=== PATIENT | female | born 1945 | race Caucasian/White ===

== ENCOUNTER → 2020-08-30 07:44 | Outpatient (REF) | payer MEDICARE, OTHER, SELFPAY ==
--- NOTE | 2020-08-30 | NM_ITS ---
EXERCISE MYOCARDIAL PERFUSION STUDY INDICATION: Tachycardia, abnormal EKG, abnormal echocardiogram, assess for coronary disease and ischemia TECHNIQUE: The patient was brought in for an exercise perfusion study on 08/30/2020. Patient performed exercise as per Kahlil protocol and was injected 25 mCi of sestamibi once target heart rate was achieved. Images were obtained using the SPECT gamma camera interlaced with the gating device. Images were obtained in supine position. Resting perfusion study was performed on 08/31/2020. Patient was administered 25 mCi of sestamibi intravenously at rest. Images were then obtained in supine position. Total DLP 71mGy-cm. Images were processed with the software and compared side to side in short axis, horizontal long axis and vertical long axis views. FINDINGS: Raw images were reviewed. The stress perfusion study showed diminished tracer uptake along the basal inferoseptal wall. With CT attenuation correction this is still seen. Otherwise, no significant perfusion abnormality.. The gated study shows normal LV systolic function with calculated LVEF of > 70%. LV cavity is normal in size. The gated study shows diminished thickening and contractility in the basal inferoseptal wall. Resting study shows diminished tracer uptake along the basal inferoseptal wall. Gating at rest reveals basal inferoseptal hypokinesis with ejection fraction at > 70%. The findings are consistent with fixed basal inferoseptal defect. No reversible defects. NM/NM maine perf SPECT rest & str IMPRESSION: 1. Myocardial perfusion imaging study shows fixed basal inferoseptal perfusion defect that may indicate a prior nontransmural infarct. No evidence of any ischemia. 2. Gated LVEF is > 70%. 3. Transient ischemic dilatation not present. EKG component of the test reported separately.
--- NOTE | 2020-08-30 07:41 | CA_ITS ---
Acquisition Time: 2020-08-30 08:39:59 Total Exercise Time: 00:04:52 Test Indications: Abnormal ECG Medications: CARVEDILOL Protocol: BONIFACIO Max HR: 146 BPM 100% of Pred: 146 BPM Max BP: 192/088 mmHG Max Work Load: 4.6 METS Exercise stress nuclear test using Bonifacio protocol. Total of 4 min 52 sec. Second stage held. Pt was very tired, some SOB, denies any CP. EKG with occ. PAC's . No ischemic changes noted on EKG however hshe achieved 4.6 METs of her work level. Nuclear images to follow. Normotensive response to exercise. Test reviewed with Dr. Rosario. Referred By: Uziel Lugo Overread By: Andre Holliday
--- NOTE | 2020-08-30 07:41 | ECG_ITS ---
Hook-up date: 2020-08-30 09:28:00 Duration: 23:09:00 Test Indications: SINUS TACHYCARDIA, ABN EKG Medications: 188135 QRS complexes 3 Ventricular ectopics which represent <1 % of total QRS comp. 1326 Supraventricular ectopics which represent 1 % of total QRS comp. * Paced QRS complexs which represent % of total QRS comp. VENTRICULAR ECTOPY 3 Isolated 0 Bigeminal Cycles 0 Couplets 0 Runs 0 Beats in Runs * Beats LONGEST at * BPM at :: -- * Beats FASTEST at * BPM at :: -- SUPRAVENTRICULAR ECTOPY 667 Isolated 162 Couplets 90 Runs 335 Beats in Runs 9 Beats LONGEST at 107 BPM at 05:14:54 2020-08-31 3 Beats FASTEST at 137 BPM at 04:54:48 2020-08-31 HEART RATES 70 MIN at 04:09:40 2020-08-31 93 AVG 141 MAX at 09:31:11 2020-08-30 LONGEST RR 1.1920 secs at 04:12:24 2020-08-31 S-T LEVELS Channel 1 - 128 mm at 09:28:00 2020-08-30 - 128 mm at 09:28:00 2020-08-30 Channel 2 - 128 mm at 09:28:00 2020-08-30 - 128 mm at 09:28:00 2020-08-30 Channel 3 - 128 mm at 02:84:71 -- - 128 mm at 02:84:71 Basic rhythm Normal sinus rhythm No long pause or profound bradycardia Frequent Sinus tachycardia Frequent Premature atrial complexes No diary submitted Referred By: Uziel Lugo Overread By: JASON PLAZA MD
--- NOTE | 2020-08-30 07:41 | CA_ITS ---
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 - E/E prime ratio is between 8 and 15 consistent with indeterminate filling pressures. - Normal right ventricular cavity size and systolic function. - The left atrium is mildly dilated. - There is moderate mitral annular calcification. There is moderate mitral valve regurgitation. The mitral regurgitation jet is directed posteriorly. - Small posterior pericardial effusion noticed posteriorly on PSx views. No tamponade physiology. Findings Left Ventricle Normal left ventricular size and systolic function. There is mildly increased left ventricular wall thickness. The visually estimated ejection fraction is between 55-60%. Regional wall motion abnormalities can not be excluded due to suboptimal endocardial definition. Diastolic function is normal for age. Spectral Doppler is indicative of an impaired relaxation filling pattern. E/E prime ratio is between 8 and 15 consistent with indeterminate filling pressures. Right Ventricle Normal right ventricular cavity size and systolic function. Atria The left atrium is mildly dilated. There is no evidence of interatrial shunt by color Doppler. Aortic Valve Normal aortic valve structure and function. There is no aortic valve stenosis. There is no aortic valve regurgitation. Mitral Valve There is moderate mitral annular calcification. There is moderate mitral valve regurgitation. The mitral regurgitation jet is directed posteriorly. There is no mitral valve stenosis. Pulmonic Valve Normal pulmonic valve structure and function. There is trace pulmonic valve regurgitation. Tricuspid Valve Normal tricuspid valve structure. There is mild to moderate tricuspid valve regurgitation. Normal right atrial pressure. There is no evidence of pulmonary hypertension. Great Vessels All visible segments of the aorta are normal in size. The visualized portions of the pulmonary artery and branches are normal. Venous The inferior vena cava is normal in size and collapses greater than 50% with inspiration. Pericardium/Pleural Small posterior pericardial effusion noticed posteriorly on PSx views. No tamponade physiology. Prior Study Comparison Changes noted compared to prior study dated: 12/01/2018. Moderate MAC and moderate MR. Small posterior pericardial effusion without tamponade physiology. Measurements 2D Linear Measurements IVSd: 1.03 0.6-0.9/0.6-1.0 cm LVIDd: 4.31 3.9-5.3/4.2-5.9 cm LVIDs: 2.78 2.0-3.6 cm LVPWd: 0.98 0.7-1.1 cm Ao Root: 2.76 2.1-3.5 cm LV Mass: 180.04 67-162/88-224 g LVOT Diam: 2.00 3.0+(-)1.3 cm Mitral Valve MV VTI: 0.29 MV Pk Lior: 1.30 MV Mn Lior: 0.87 MV Pk Grad: 6.79 MV Mn Grad: 3.49 MV Pk E: 0.93 MV PK A: 1.19 MV Decel Time: 161.67 E/A: 0.78 E'Lateral: 0.08 E'Medial: 0.07 Decel [place]: 5.77 Aortic Valve AoV Pk Lior: 1.38 AoV Mn Lior: 1.06 AoV VTI: 0.35 AoV Pk Grad: 7.56 Aov Mn Grad: 4.93 LVOT LVOT Pk Lior: 0.84 LVOT Mn Lior: 0.52 LVOT VTI: 0.21 LVOT Pk Grad: 2.82 LVOT Mn Grad: 1.32 LVOT Diam: 2.00 LVOT Area: 3.13 Diastolic Function MV Pk E: 0.93 MV Pk A: 1.19 E/A: 0.78 E'Medial: 0.07 E' Laterial: 0.08 Tricuspid Valve TR Pk Lior: 2.27 TR Pk Grad: 20.68 RA Press: 3.00 Great Vessels Aorta Ao Root-2D: 2.76 2.0-3.7 cm Ao Asc: 2.88 2.1-3.4 cm Pulmonary Valve PV Pk Lior: 0.86 Peak PV Grad: 2.93 Updated in Other Vendor System with Status of Final Kendrick Rosario MD electronically signed on 08/31/2020 10:45:36 AM with status of Final
== END ==
LOC: HO.CARD 07:44
PROVIDERS: PCP Family Medicine; Visit Provider Internal Medicine
DX: R00.0 Tachycardia, unspecified (principal); I49.8 Other specified cardiac arrhythmias; R94.31 Abnormal electrocardiogram [ECG] [EKG]
CPT/HCPCS: 78452; 93017; 93225; 93226; 93306; A9500

== ENCOUNTER → 2020-09-13 08:10 | Outpatient (BNVA) | payer MEDICARE, OTHER, SELFPAY | PROVIDERS: PCP Family Medicine; Referring Provider Family Medicine; Visit Provider Internal Medicine | DX: I25.10 Atherosclerotic heart disease of native coronary artery without angina pectoris (principal); R00.0 Tachycardia, unspecified; Z79.899 Other long term (current) drug therapy | CPT/HCPCS: 99212 ==

== ENCOUNTER 2020-09-14 06:56 | Outpatient (REF) | payer MEDICARE, OTHER, SELFPAY ==
[2020-09-14 07:49] LABS: Alanine Aminotransferase 21 U/L (0-31); Albumin Level 4.3 g/dL (3.5-5.0); Alkaline Phosphatase 52 U/L (39-117); Aspartate Amino Transferase 18 U/L (5-31); Bilirubin Direct 0.4 mg/dL (0.0-0.5); Cholesterol 202 mg/dL; HDL Cholesterol 49 mg/dL; LDL Cholesterol Calculated 123 mg/dl; Total Protein 6.6 g/dL (6.5-8.0); Triglycerides 154 mg/dL
== END 2020-09-14 06:57 | disposition home or self-care (01) ==
LOC: HO.LAB 06:56
PROVIDERS: PCP Family Medicine; Visit Provider Internal Medicine
DX: I25.10 Atherosclerotic heart disease of native coronary artery without angina pectoris (principal)
CPT/HCPCS: 80061; 80076

== ENCOUNTER 2020-12-04 07:30 | Day surgery (SDC) | payer MEDICARE, OTHER, SELFPAY ==
[2020-11-28 12:12] VITALS: BMI 25.8
--- NOTE | 2020-12-01 10:08 | HO.ANESPROP2 ---
Documented by User: Arlet New 12/01/20 10:13 HPI - Anesthesia Eval Consult details Narrative: 75yo F for Colonoscopy +ETOH, LIVP nml PMFSH Past Medical History Medical History Anemia Atherosclerotic cardiovascular disease Hx of breast cancer Hypertension Sinus tachycardia Family History Family History Father No problems noted. Mother Stroke Surgical History Surgical History History of appendectomy History of bilateral mastectomy History of section History of removal of both ovaries Hx of colonoscopy Social History Social History Are you a primary anesthesiologist and critical care to a significant other at home: No Do you presently have visiting nurse or other home services: No Smoking Status: Never smoker Second Hand Smoke Exposure: No Use of substances other than those prescribed or required for medical reasons: No Have you been hit, kicked, punched, or otherwise hurt by someone within the past year? If so, by whom?: No Advance Directives: No Advance Directives Information Provided: No Advance Directives on File: No Recently lost weight without trying: No Meds Allergies Allergy/AdvReac Type Severity Reaction Status Date / Time No Known Allergies Allergy Mild N/A Verified 11/28/20 11:37 Home Medications Medication Instructions Recorded Confirmed Type calcium carbonate-vitamin D3 600 1 tab PO DAILY 09/13/20 11/28/20 History mg(1,500 mg)-400 unit chewable tablet carvedilol 12.5 mg tablet 12.5 mg PO BID 09/13/20 12/04/20 History coenzyme Q10 100 mg capsule 100 mg PO DAILY 09/13/20 11/28/20 History ibuprofen [Advil] 200 mg PO Q6H PRN 11/28/20 11/28/20 History Exam Exam Date and Time: December 01, 2020 1008 Height,Weight and Vital Signs: Height 5 ft 6 in Weight 72.575 kg Narrative Narrative: Cardiac testing reviewed by cardiology. No further tx. EKG: sinus rhythm at 95/Min with mild MN prolongation and right ventricular conduction delay ECHO 08/30/20 Conclusions: - Normal left ventricular size and systolic function. - E/E prime ratio is between 8 and 15 consistent with indeterminate filling pressures. - Normal right ventricular cavity size and systolic function. - The left atrium is mildly dilated. - There is moderate mitral annular calcification. There is moderate mitral valve regurgitation. The mitral regurgitation jet is directed posteriorly. - Small posterior pericardial effusion noticed posteriorly on PSx views. No tamponade physiology. MIBI 08/30/21 NM maine perf SPECT rest & str IMPRESSION: 1. Myocardial perfusion imaging study shows fixed basal inferoseptal perfusion defect that may indicate a prior nontransmural infarct. No evidence of any ischemia. 2. Gated LVEF is > 70%. 3. Transient ischemic dilatation not present. Assessment and Plan Assessment Anesthesia Assessment: Chart Reviewed Documented by User: Cheyanne Muñoz 12/04/20 09:27 [facility] Past Medical History Medical History Anemia Atherosclerotic cardiovascular disease Hx of breast cancer Hypertension Sinus tachycardia Family History Family History Father No problems noted. Mother Stroke Family history of problems with anesthesia: No Surgical History Surgical History History of appendectomy History of bilateral mastectomy History of section History of removal of both ovaries Hx of colonoscopy History of Problems with Anesthesia: No Social History Social History Are you a primary anesthesiologist and critical care to a significant other at home: No Do you presently have visiting nurse or other home services: No Smoking Status: Never smoker Second Hand Smoke Exposure: No Use of substances other than those prescribed or required for medical reasons: No Have you been hit, kicked, punched, or otherwise hurt by someone within the past year? If so, by whom?: No Advance Directives: No Advance Directives Information Provided: No Advance Directives on File: No Recently lost weight without trying: No Meds Allergies Allergy/AdvReac Type Severity Reaction Status Date / Time No Known Allergies Allergy Mild N/A Verified 11/28/20 11:37 Home Medications Medication Instructions Recorded Confirmed Type calcium carbonate-vitamin D3 600 1 tab PO DAILY 09/13/20 11/28/20 History mg(1,500 mg)-400 unit chewable tablet carvedilol 12.5 mg tablet 12.5 mg PO BID 09/13/20 12/04/20 History coenzyme Q10 100 mg capsule 100 mg PO DAILY 09/13/20 11/28/20 History ibuprofen [Advil] 200 mg PO Q6H PRN 11/28/20 11/28/20 History Exam Height,Weight and Vital Signs: Vital Signs Temp Pulse Resp BP Pulse Ox 12/04/20 08:11 97.1 F 70 18 145/60 H 97 Airway Mallampati Class: IV (Small mouth opening) TM Dist: >3cm Neck ROM: Full Heart: RRR Lungs: CTAB Assessment and Plan Assessment Anesthesia Assessment: Anesthesia Plan Discussed and Chart Reviewed Final Anesthetic Review NPO: Yes ASA Class: II Final Preanesthetic Review: No Changes in Pt Med Stat, Meds/Allgs Chart Reviewed, Consent Obtained/Reviewed and Anes Risks/Benef Reviewed Patient Risk: Low Procedure Risk: Low Assessment/Block/Sedation in SS: Assess/Block/Sedation-SS Anesthetic Plan Anesthetic Plan: MAC: Disposition: Standard PACU
[2020-12-04 08:11] VITALS: BP 145/60; PULSE 70; RESP 18; TEMP 36.2; O2SAT 97
[2020-12-04 09:33] VITALS: BP 114/61; PULSE 74; RESP 16; TEMP 36; O2SAT 98
--- NOTE | 2020-12-04 09:34 | PM.OP ---
Brief Operative Note Date of Service: 12/04/20 Pre-op diagnosis: Screening Post-op diagnosis: other (Colon polyps, Diverticulosis) Procedure: Colonoscopy to cecum with snare polypectomy, biopsy and removal of polyps, and placement of 3 Resolution clips on the 2 cecal polypectomy sites. Surgeon: Christiano Nina Anesthesia: MAC Estimated blood loss (mL): 5.0 Pathology: other (A. Polyps at 60cm B. Cecal polyps C. Transverse colon polyp) Condition: stable Disposition: PACU
[2020-12-04 09:47] VITALS: BP 139/57; PULSE 68; RESP 16; TEMP 36.1; O2SAT 99
--- NOTE | 2020-12-04 10:06 | HO.POSTANES ---
Post Anesthesia Evaluation Post Anesthesia Evaluation Vital Signs: Vital Signs Temp Pulse Resp BP Pulse Ox 12/04/20 09:47 97 F 68 16 139/57 L 99 12/04/20 09:33 96.8 F 74 16 114/61 98 12/04/20 08:11 97.1 F 70 18 145/60 H 97 Anesthesia: TIVA Mental Status: Awake Pain Control: Satisfactory Nausea/Vomiting: None Hydration: Adequate Anesthesia-Related Issues: No Anes. Related Issues
--- NOTE | 2020-12-04 10:11 | OP_ITS ---
SURGEON: Christiano Nina MD INDICATIONS: Full consent has been obtained from her for this, including risks of bleeding and perforation. PREOPERATIVE DIAGNOSIS: POSTOPERATIVE DIAGNOSIS: PROCEDURE PERFORMED: Colonoscopy to the cecum with snare polypectomy, biopsy and removal of polyps, and placement of 3 resolution clips. ESTIMATED BLOOD LOSS: COMPLICATIONS: ANESTHESIA: Medication used, monitored anesthesia care. ASSISTANTS: SPECIMENS: PREOPERATIVE DIAGNOSES: Colorectal cancer screening and personal history of tubular adenoma of the colon. POSTOPERATIVE DIAGNOSES: Colorectal cancer screening, personal history of tubular adenoma of the colon, colon polyps, diverticulosis, and internal hemorrhoids. DESCRIPTION OF PROCEDURE: The patient was placed in the left lateral decubitus position. The digital rectal exam revealed no abnormalities. The Olympus video pediatric colonoscope was entered into the rectum, advanced easily to the cecum. Once in the cecum, I did identify cecal pouch with appendiceal orifice and a normal-appearing ileocecal valve. There was transillumination of light deep in the right lower quadrant. The entire cecum was well visualized. In the cecum, was a 10 mm grossly adenomatous polyp, which was snared and recovered by suction. The polypectomy site had some persistent oozing and therefore 2 resolution clips were placed on it with good hemostasis. Also in the cecum, closer to the appendiceal orifice, was an approximately 8 mm grossly adenomatous polyp, which was snared and recovered by suction. I also placed a resolution clip on that as she does need to go back on aspirin eventually. There was good hemostasis. The remainder of the cecum appeared normal. The scope was then slowly withdrawn assessing all mucosal surfaces carefully. Preparation was excellent. In the transverse colon and at 60 cm, were flat less than 5 mm polyps, which were all biopsied and completely removed with cold biopsy forceps. I did not visualize any other polyps, colitis, or angiodysplasia. There was a mild amount of sigmoid diverticulosis. In the rectum, scope was retroflexed visualizing internal hemorrhoids, but no other pathology. The rectal mucosa appeared normal. The scope was straightened out and withdrawn from the patient. She tolerated the procedure well and was returned to recovery area in stable condition. IMPRESSION: 1. Colon polyps, status post snare polypectomy and biopsy and removal of polyps. Placement of 3 resolution clips at the site of cecal polypectomies. 2. Diverticulosis. 3. Internal hemorrhoids. PLAN: The results of the pathology will be checked. I would recommend a repeat colonoscopy in 5 years for further screening, although at that point she would be in her late 70s and we would take her clinical condition into account. She was advised not to use any aspirin for 72 more hours. She was advised not to use any NSAIDs for at least a week. MD RODOLFO Tang/SERVANDO / [phone]
== END 2020-12-04 10:23 | disposition home or self-care (01) ==
PROVIDERS: PCP Family Medicine; Visit Provider Internal Medicine
PROC: 0DJD8ZZ Inspection of Lower Intestinal Tract, Via Natural or Artificial Opening Endoscopic (ICD-10-PCS; CPT 45378; principal; 2020-12-04 08:40)
DX: Z12.11 Encounter for screening for malignant neoplasm of colon (principal); Z86.010 Personal history of colon polyps; D12.0 Benign neoplasm of cecum; D12.3 Benign neoplasm of transverse colon; D12.4 Benign neoplasm of descending colon; K57.30 Diverticulosis of large intestine without perforation or abscess without bleeding; K64.8 Other hemorrhoids; D64.9 Anemia, unspecified; I10 Essential (primary) hypertension; Z85.3 Personal history of malignant neoplasm of breast; Z79.82 Long term (current) use of aspirin; Z79.899 Other long term (current) drug therapy
CPT/HCPCS: 45385; 45380; 88305

== ENCOUNTER → 2021-01-16 08:15 | Outpatient (BNVA) | payer MEDICARE, OTHER, SELFPAY | PROVIDERS: PCP Family Medicine; Visit Provider Internal Medicine | DX: I25.10 Atherosclerotic heart disease of native coronary artery without angina pectoris (principal); R00.0 Tachycardia, unspecified; F10.10 Alcohol abuse, uncomplicated | CPT/HCPCS: 99212 ==

== ENCOUNTER 2021-01-17 07:25 | Outpatient (REF) | payer MEDICARE, OTHER, SELFPAY ==
[2021-01-17 08:42] LABS: Alanine Aminotransferase 32 U/L (0-31); Albumin Level 4.5 g/dL (3.5-5.0); Alkaline Phosphatase 67 U/L (39-117); Aspartate Amino Transferase 27 U/L (5-31); Bilirubin Direct 0.4 mg/dL (0.0-0.5); Cholesterol 165 mg/dL; HDL Cholesterol 57 mg/dL; LDL Cholesterol Calculated 73 mg/dl; Total Protein 6.9 g/dL (6.5-8.0); Triglycerides 177 mg/dL
== END 2021-01-17 07:26 | disposition home or self-care (01) ==
LOC: HO.LAB 07:25
PROVIDERS: PCP Family Medicine; Visit Provider Internal Medicine
DX: I25.10 Atherosclerotic heart disease of native coronary artery without angina pectoris (principal)
CPT/HCPCS: 36415; 80061; 80076

== ENCOUNTER 2021-05-30 07:10 | Outpatient (REF) | payer MEDICARE, OTHER, SELFPAY ==
[2021-05-30 07:59] LABS: Alanine Aminotransferase 14 U/L (0-31); Albumin Level 4.1 g/dL (3.5-5.0); Alkaline Phosphatase 59 U/L (39-117); Aspartate Amino Transferase 18 U/L (5-31); Bilirubin Direct 0.6 mg/dL (0.0-0.5); Bilirubin Total 1.7 mg/dL (0.0-1.0); Total Protein 6.4 g/dL (6.5-8.0)
== END 2021-05-30 07:11 | disposition home or self-care (01) ==
LOC: HO.LAB 07:10
PROVIDERS: PCP Family Medicine; Visit Provider Internal Medicine
DX: I25.10 Atherosclerotic heart disease of native coronary artery without angina pectoris (principal)
CPT/HCPCS: 36415; 80076

== ENCOUNTER → 2021-07-24 08:10 | Outpatient (BNVA) | payer MEDICARE, OTHER, SELFPAY | PROVIDERS: PCP Family Medicine; Visit Provider Internal Medicine | DX: I25.10 Atherosclerotic heart disease of native coronary artery without angina pectoris (principal); F10.10 Alcohol abuse, uncomplicated; R00.0 Tachycardia, unspecified | CPT/HCPCS: 93005; 99212 ==

== ENCOUNTER 2021-10-10 06:57 | Outpatient (REF) | payer MEDICARE, OTHER, SELFPAY ==
[2021-10-10 07:46] LABS: Alanine Aminotransferase 27 U/L (0-31); Albumin Level 4.4 g/dL (3.5-5.0); Alkaline Phosphatase 66 U/L (39-117); Aspartate Amino Transferase 23 U/L (5-31); Bilirubin Direct 0.5 mg/dL (0.0-0.5); Bilirubin Total 1.4 mg/dL (0.0-1.0); Cholesterol 179 mg/dL; HDL Cholesterol 54 mg/dL; LDL Cholesterol Calculated 68 mg/dl; Total Protein 7.1 g/dL (6.5-8.0); Triglycerides 286 mg/dL
== END 2021-10-10 06:58 | disposition home or self-care (01) ==
LOC: HO.LAB 06:57
PROVIDERS: PCP Family Medicine; Visit Provider Nurse Practitioner Family
DX: I25.10 Atherosclerotic heart disease of native coronary artery without angina pectoris (principal); F10.10 Alcohol abuse, uncomplicated
CPT/HCPCS: 36415; 80061; 80076

== ENCOUNTER → 2022-01-28 09:27 | Outpatient (BNVA) | payer MEDICARE, OTHER, SELFPAY | PROVIDERS: PCP Family Medicine; Visit Provider Internal Medicine | DX: I25.10 Atherosclerotic heart disease of native coronary artery without angina pectoris (principal); R00.0 Tachycardia, unspecified; F10.10 Alcohol abuse, uncomplicated | CPT/HCPCS: 99212 ==

== ENCOUNTER → 2022-01-29 08:24 | Outpatient (REF) | payer MEDICARE, OTHER, SELFPAY ==
--- NOTE | ~2022-01-29 | XR_ITS ---
EXAMINATION: XR KNEE, BILATERAL CLINICAL INFORMATION: Bilateral knee pain. COMPARISON: None TECHNIQUE: 4 views each knee. FINDINGS: Left Knee: There is minimal loss of medial and patellofemoral compartment joint space with anterior superior patellar enthesophytes. No loose body seen. The soft tissues are normal. Right Knee: There is mild loss of medial compartment joint space right knee no bony erosive changes, loose bodies or joint effusion. No fracture seen. XR/XR knee LT 4V IMPRESSION: Mild degenerative changes of medial and patellofemoral compartment left knee. Mild anterior superior patellar enthesophyte. Minimal early degenerative arthritic changes medial compartment right knee.
--- NOTE | ~2022-01-29 | XR_ITS ---
EXAMINATION: XR KNEE, BILATERAL CLINICAL INFORMATION: Bilateral knee pain. COMPARISON: None TECHNIQUE: 4 views each knee. FINDINGS: Left Knee: There is minimal loss of medial and patellofemoral compartment joint space with anterior superior patellar enthesophytes. No loose body seen. The soft tissues are normal. Right Knee: There is mild loss of medial compartment joint space right knee no bony erosive changes, loose bodies or joint effusion. No fracture seen. XR/XR knee RT 4V IMPRESSION: Mild degenerative changes of medial and patellofemoral compartment left knee. Mild anterior superior patellar enthesophyte. Minimal early degenerative arthritic changes medial compartment right knee.
--- NOTE | 2022-01-29 08:32 | CA_ITS ---
Transthoracic Echocardiogram Patient (Last, First, Middle): Marielena Schroeder J Gender: Female Date of : 1945 Age: 76 Procedure Date: 01/29/2022 Procedure Type: Transthoracic Echocardiogram Location: OP Height: 167.64 cm Weight: 74.84 kg BSA: 1.84 m2 Heart Rate: bpm BP: 132 / 84 mmHg Assistance Representative: JOSE Referring MD: Uziel Lugo MD Symptoms: I25.10 - Atherosclerotic heart disease of [place] coronary... Study Quality: Fair ECG Rhythm: Sinus Conclusions: - The left ventricular systolic function is normal. The calculated ejection fraction is 57% by biplane method. - The inferoseptal wall is hypokinetic. - No obvious valvular pathology seen on this study. - There is a small loculated pericardial effusion overlying the left ventricle. Findings Left Ventricle Normal left ventricular cavity size. There is mildly increased left ventricular wall thickness. The left ventricular systolic function is normal. The calculated ejection fraction is 57% by biplane method. There is no evidence of regional wall motion abnormalities. E/E prime ratio is between 8 and 15 consistent with indeterminate filling pressures. Evidence suggests grade I (mild) diastolic dysfunction. Wall Motion Rest Echo Findings The inferoseptal wall is hypokinetic. Right Ventricle Normal right ventricular cavity size and systolic function. Atria The left atrium is mildly dilated. The right atrium is normal in size. Aortic Valve There is a normal trileaflet aortic valve. There is no aortic valve stenosis. There is no aortic valve regurgitation. Mitral Valve There is mild anterior mitral leaflet thickening. There is mild mitral annular calcification. There is trace mitral valve regurgitation. There is no mitral valve stenosis. Pulmonic Valve The pulmonic valve was not well visualized. Tricuspid Valve Normal tricuspid valve structure. There is mild tricuspid valve regurgitation. The pulmonary artery systolic pressure is normal. Great Vessels The aortic annulus, sinuses of valsalva, and asc aorta are normal in size. Venous The inferior vena cava is mildly dilated and collapses greater than 50% with inspiration. Pericardium/Pleural There is a small loculated pericardial effusion overlying the left ventricle. There are no definitive echocardiographic findings of tamponade physiology. Prior Study Comparison No significant change compared to prior study dated: 08/30/2020. Recommendations, Care & Conclusions No obvious valvular pathology seen on this study. Measurements 2D Linear Measurements IVSd: 1.25 0.6-0.9/0.6-1.0 cm LVIDd: 3.85 3.9-5.3/4.2-5.9 cm LVIDd Index: 2.09 2.4-3.2/2.2-3.1 cm/m2 LVIDs: 2.62 2.0-3.6 cm LVPWd: 1.27 0.7-1.1 cm LA Diam: 3.90 2.7-3.8/3.0-4.0 cm LAIDs Index: 2.12 1.5-2.3 cm/m2 LV Mass: 209.46 67-162/88-224 g LV Mass Index: 113.84 43-95/49-115 g/m2 LVOT Diam: 2.00 3.0+(-)1.3 cm 2D Systolic Function EF 4C: 56.70 >55% EF 2C: 61.40 >55% EF BiP: 56.70 >55% Mitral Valve MV Pk E: 0.88 MV PK A: 1.21 MV Decel Time: 104.00 E/A: 0.70 E'Lateral: 7.29 E'Medial: 6.20 E/E' Med: 14.20 E/E' Lat: 12.10 PHT: 31.00 MVA PHT: 7.10 Decel Hopkins: 8.46 Aortic Valve AoV Pk Lior: 1.27 AoV Mn Lior: 0.91 AoV VTI: 0.28 AoV Pk Grad: 6.00 Aov Mn Grad: 4.00 WILLIAMS Cont.VTI: 2.02 LVOT LVOT Pk Lior: 0.77 LVOT Mn Lior: 0.59 LVOT VTI: 0.18 LVOT Pk Grad: 2.00 LVOT Mn Grad: 2.00 LVOT Diam: 2.00 LVOT Area: 3.14 Diastolic Function MV Pk E: 0.88 MV Pk A: 1.21 E/A: 0.70 E'Medial: 6.20 E/E' Med: 14.20 E' Laterial: 7.29 E/E' Lat: 12.10 Right Ventricle TAPSE (mm): 22.60 TVS' Lior: 10.30 Tricuspid Valve TR Pk Lior: 2.52 TR Pk Grad: 25.00 RA Press: 8.00 RVSP: 33.00 Great Vessels Aorta Sinus of Valsalva: 3.11 2.0-3.[address] [place]: 2.55 1.7-3.4 cm Ao Asc: 3.00 2.1-3.4 cm Updated in Other Vendor System with Status of Final Uziel Lugo MD electronically signed on 01/29/2022 4:16:38 PM with status of Final
== END ==
LOC: HO.CARD 08:24
PROVIDERS: Absent Provider Family Medicine; PCP Family Medicine; Visit Provider Internal Medicine
DX: R00.0 Tachycardia, unspecified (principal); I25.10 Atherosclerotic heart disease of native coronary artery without angina pectoris; F10.10 Alcohol abuse, uncomplicated; M25.561 Pain in right knee; M25.562 Pain in left knee
CPT/HCPCS: 73564; 93306

== ENCOUNTER 2022-05-07 09:50 | Outpatient (REF) | payer MEDICARE, OTHER, SELFPAY ==
[2022-05-07 11:18] LABS: Alanine Aminotransferase 19 U/L (0-31); Anion Gap 11 (12-20); Blood Urea Nitrogen 14 mg/dL (9-16); Carbon Dioxide 31 mmol/L (22-29); Chloride 106 mmol/L (96-108); Estimated Glomerular Filt Rate > 60; Potassium 4.7 mmol/L (3.3-5.1); Sodium 143 mmol/L (135-145)
== END 2022-05-07 09:51 | disposition home or self-care (01) ==
LOC: HO.LAB 09:50
PROVIDERS: PCP Family Medicine; Visit Provider Family Medicine
DX: I10 Essential (primary) hypertension (principal); E78.00 Pure hypercholesterolemia, unspecified; Z79.899 Other long term (current) drug therapy
CPT/HCPCS: 36415; 80051; 82550; 82565; 84460; 84520

== ENCOUNTER 2022-08-27 08:35 | Outpatient (REF) | payer MEDICARE, OTHER, SELFPAY ==
--- NOTE | ~2022-08-27 | XR_ITS ---
EXAMINATION: XR HIP, RIGHT CLINICAL INFORMATION: Right hip pain COMPARISON: None TECHNIQUE: Two views of the right hip. FINDINGS: Mild superior joint space narrowing and small marginal osteophytes. No fracture. No suspicious bone lesion. XR/XR hip RT min 2V IMPRESSION: Mild right hip osteoarthritis.
== END 2022-08-27 08:36 | disposition home or self-care (01) ==
LOC: HO.XRAY 08:35
PROVIDERS: PCP Family Medicine; Visit Provider Family Medicine
DX: M25.551 Pain in right hip (principal)
CPT/HCPCS: 73502

== ENCOUNTER → 2022-09-24 08:30 | Outpatient (BNVA) | payer MEDICARE, OTHER, SELFPAY | PROVIDERS: PCP Family Medicine; Referring Provider Family Medicine; Visit Provider Internal Medicine | DX: R00.0 Tachycardia, unspecified (principal); I25.10 Atherosclerotic heart disease of native coronary artery without angina pectoris; F10.10 Alcohol abuse, uncomplicated | CPT/HCPCS: 93005; 99212 ==

== ENCOUNTER 2022-10-14 11:40 | Outpatient (REF) | payer MEDICARE, OTHER, SELFPAY ==
--- NOTE | ~2022-10-14 | XR_ITS ---
EXAMINATION: XR LUMBOSACRAL SPINE CLINICAL INFORMATION: Low back pain COMPARISON: None TECHNIQUE: Three views of the lumbosacral spine. FINDINGS: 5 nonrib-bearing lumbar vertebral bodies are visualized. Alignment is within normal limits. Lumbar vertebral body heights are maintained. There is moderate to severe disc space narrowing throughout the entirety of the lumbar spine with the exception of the L3/4 level where there is only mild disc space narrowing. Small osteophytes are present throughout the lumbar spine. Mild degenerative changes of the posterior elements of the lower lumbar spine. Sacroiliac joints are symmetric. Surgical clips project over the right lower abdomen and pelvis. XR/XR lumbar spine 2-3V IMPRESSION: Moderate diffuse degenerative changes of the lumbar spine. No compression deformity.
[2022-10-14 12:43] LABS: Alanine Aminotransferase 24 U/L (0-31); Anion Gap 11 (12-20); Aspartate Amino Transferase 22 U/L (5-31); Blood Urea Nitrogen 15 mg/dL (9-16); Carbon Dioxide 28 mmol/L (22-29); Chloride 106 mmol/L (96-108); Estimated Glomerular Filt Rate > 60; Glucose Fasting 113 mg/dL (60-99); Potassium 4.2 mmol/L (3.3-5.1); Sodium 141 mmol/L (135-145)
== END 2022-10-14 11:41 | disposition home or self-care (01) ==
LOC: HO.LAB 11:40
PROVIDERS: PCP Family Medicine; Visit Provider Family Medicine
DX: E78.00 Pure hypercholesterolemia, unspecified (principal); I10 Essential (primary) hypertension; R73.9 Hyperglycemia, unspecified; Z79.899 Other long term (current) drug therapy
CPT/HCPCS: 36415; 72100; 80051; 82550; 82565; 82947; 84450; 84460; 84520

== ENCOUNTER 2023-05-05 13:26 | Outpatient (REF) | payer MEDICARE, OTHER, SELFPAY ==
[2023-05-05 14:47] LABS: Alanine Aminotransferase 18 U/L (0-31); Anion Gap 12 (12-20); Aspartate Amino Transferase 24 U/L (5-31); Blood Urea Nitrogen 18 mg/dL (9-16); Carbon Dioxide 30 mmol/L (22-29); Chloride 107 mmol/L (96-108); Estimated Glomerular Filt Rate > 60; Magnesium 1.7 mg/dL (1.6-2.6); Potassium 4.2 mmol/L (3.3-5.1); Sodium 145 mmol/L (135-145)
== END 2023-05-05 13:27 | disposition home or self-care (01) ==
LOC: HO.LAB 13:26
PROVIDERS: PCP Family Medicine; Visit Provider Family Medicine
DX: I10 Essential (primary) hypertension (principal); R11.0 Nausea
CPT/HCPCS: 36415; 80051; 82565; 83735; 84450; 84460; 84520

== ENCOUNTER 2023-09-29 08:48 | Outpatient (AMB) | payer MEDICARE, OTHER, SELFPAY ==
--- NOTE | 2023-09-29 08:49 | A.OFFVIS_ITS ---
Intake Vital Signs 09/29/23 08:50 Height 5 ft 6 in Weight 158 lb 11.725 oz BMI 25.6 BP 112/78 Blood Pressure Location Lt brachial Position Sitting Pulse 87 Intake Visit Reasons: 1 yr f/up Intake Note: 1 year follow up w/ EKG Cad Librarian Required: No Accompanied by: Self / Same As Patient Allergies No Known Allergies Allergy (Mild, Verified 09/29/23 08:53) N/A Medication List - Last Reconciled 09/29/23 by Uziel Lugo MD aspirin (Enteric Coated Aspirin) 81 mg PO DAILY calcium carbonate-vitamin D3 600 mg-10 mcg (400 unit) 1 tab PO DAILY carvedilol 12.5 mg PO BID coenzyme Q10 (Co Q-10) 100 mg PO DAILY ibuprofen (Advil) 200 mg PO Q6H PRN rosuvastatin (Crestor) 5 mg PO DAILY HPI HPI Comments History of Present Illness Details Marielena returns for follow-up regarding sinus tachycardia as well as suspected coronary disease. She was originally seen in consultation regarding tachycardia. Thought to be possibly from alcohol. She is on beta-blockers in that regard. Initially on metoprolol but then switched over to carvedilol. That she underwent cardiac workup including echocardiogram and stress test and being treated for stable CAD as well. Overall, she states she is feeling fine. Lot of stress and family as her son has some medical issues. Otherwise, no chest pain or cardiac symptoms. With regard to alcohol excess, she states she has cut back but not stopped yet. PENDING SALE TO [facility] Medical History (Updated 01/16/21 @ 08:37 by Uziel Lugo MD) Alcohol abuse Hx of breast cancer Anemia Hypertension Sinus tachycardia Atherosclerotic cardiovascular disease Surgical History Hx of colonoscopy History of removal of both ovaries History of appendectomy History of bilateral mastectomy History of section Family History Father No problems noted. Mother Stroke Social History Are you a primary director critical care to a significant other at home: No Do you presently have visiting nurse or other home services: No Patient Tobacco Use Status: Never used Tobacco Second Hand Smoke Exposure: No Review of Systems Const Denies weakness ENT Denies dizziness Card Denies chest pain, Denies chest pain with activity, Denies syncope, Denies rapid heart rate, Denies pedal edema, Denies edema, Denies leg edema, Denies lightheadedness, Denies palpitations, Denies dyspnea, Denies dyspnea on exertion and Denies orthopnea Resp Denies cough, Denies dyspnea and Denies dyspnea on exertion GI Denies hematochezia and Denies change in stool character Musc Denies abnormal gait, Denies muscle cramps, Denies muscle weakness, Denies numbness, Denies radiating pain into limb and Denies tingling Neuro Denies abnormal gait, Denies dizziness, Denies syncope, Denies numbness, Denies tingling and Denies weakness Endo Denies palpitations Physical Exam Vital Signs: Last Vital Signs Pulse 87 09/29/23 08:50 BP 112/78 09/29/23 08:50 BMI result Body Mass Index 25.6 Const General: comfortable and no acute distress Orientation/consciousness: patient oriented x3 HEENT Other: Unremarkable Head: Yes normal to inspection Neck Neck: Yes normal visual inspection Chest Chest palpation & inspection: normal inspection of the chest Resp Auscultation: clear to auscultation bilaterally Cardio Palpation: normal PMI Heart sounds: S1 normal heart sound present, S2 normal heart sound present, no gallops, no murmurs and no rubs GI Palpation (GI): Soft to palpation Back/Spine/Pelvis Other: unremarkable Skin General skin exam: no rashes or lesions noted Neuro General: patient oriented x3 Extrem General: Yes normal to inspection Psych Mental Status: mental status grossly normal Office Procedures EKG Details: EKG with sinus rhythm at 87/Min; premature supraventricular complex; possible left atrial enlargement; no significant ST-T changes and otherwise unremarkable. [id number], Complete Assessment & Plan Assessment & Plan (1) Atherosclerotic cardiovascular disease: Code(s): I25.10 - Atherosclerotic heart disease of [place] coronary artery without angina pectoris (2) Sinus tachycardia: Code(s): R00.0 - Tachycardia, unspecified (3) Alcohol abuse: Code(s): F10.10 - Alcohol abuse, uncomplicated Plan Cardiac studies reviewed. In the echocardiogram, LVEF 57%; inferoseptal hypokinesis. Small loculated effusion overlying the left ventricle. In the stress test, fixed basal inferoseptal perfusion defect, that could indicate old nontransmural infarct. Overall, no cardiac symptoms and hence we can continue treatment for stable coronary disease. Continue aspirin/statins. Not on high-dose statins due to concurrent alcohol excess. Otherwise, we will see her in 1 year with another echocardiogram. Orders: Orders CA echo transthoracic complete 51 Weeks F10.10 - Alcohol abuse, uncomplicated, I25.10 - Atherosclerotic heart disease of [place] coronary artery without angina pectoris, R00.0 - Tachycardia, unspecified Coding Level of Care Code Est Pt Level 4 (41760) Diagnoses Atherosclerotic cardiovascular disease I25.10 Sinus tachycardia R00.0 Alcohol abuse F10.10 CPT Codes EKG - CPT: 48327-[id number], Complete ([id number])
[2023-09-29 08:50] VITALS: BP 112/78; PULSE 87; BMI 25.6
== END 2023-09-29 09:09 | disposition home or self-care (01) ==
PROVIDERS: Visit Provider Internal Medicine
DX: I25.10 Atherosclerotic heart disease of native coronary artery without angina pectoris (principal); R00.0 Tachycardia, unspecified; F10.10 Alcohol abuse, uncomplicated
CPT/HCPCS: 93010; 99214

== ENCOUNTER → 2023-09-29 08:48 | Outpatient (BNVA) | payer MEDICARE, OTHER, SELFPAY | PROVIDERS: Visit Provider Internal Medicine | DX: I25.10 Atherosclerotic heart disease of native coronary artery without angina pectoris (principal); I10 Essential (primary) hypertension; R00.0 Tachycardia, unspecified; F10.10 Alcohol abuse, uncomplicated | CPT/HCPCS: 93005; 99212 ==

== ENCOUNTER 2024-01-12 14:01 | Outpatient (REF) | payer MEDICARE, OTHER, SELFPAY ==
[2024-01-12 14:24] LABS: MANUAL DIFF FLAG NO
[2024-01-12 14:55] LABS: Basophils Absolute Auto 0.1 X10*3/uL (0.0-0.2); Basophils Percent Auto 0.9 % (0-2); Eosinophils Absolute Auto 0.1 X10*3/uL (0.0-0.4); Eosinophils Percent Auto 1.6 % (0-4); Hematocrit 40.5 % (37.0-47.0); Hemoglobin 12.8 g/dl (12.0-16.0); Imm Gran Abs Auto 0.02 X10*3/uL (0.00-0.03); Imm Gran Pct Auto 0.3 % (0.0-0.4); Lymphocytes Absolute Auto 1.2 X10*3/uL (1.2-4.9); Lymphocytes Percent Auto 16.5 % (20-40); Mean Corpuscular HGB Conc 31.6 g/dl (31.0-35.0); Mean Corpuscular Hemoglobin 32.5 pg (27.0-33.0); Mean Corpuscular Volume 102.8 fL (80.0-98.0); Mean Platelet Volume 9.7 fL (9.4-12.3); Monocytes Absolute Auto 0.9 X10*3/uL (0.1-1.2); Monocytes Percent Auto 12.4 % (2-11); Neutrophils Absolute Auto 5.1 x10*3/uL (2.0-8.3); Neutrophils Percent Auto 68.3 % (45-73); Platelet Count 177 X10*3/uL (160-400); Red Blood Count 3.94 X10*6/uL (4.20-5.50); Red Cell Distribution Width 12.8 % (11.0-16.0); White Blood Count 7.4 X10*3/uL (4.8-10.8)
[2024-01-12 15:39] LABS: Alanine Aminotransferase 25 U/L (0-31); Anion Gap 9 (12-20); Aspartate Amino Transferase 23 U/L (5-31); Blood Urea Nitrogen 15 mg/dL (9-16); Carbon Dioxide 31 mmol/L (22-29); Chloride 106 mmol/L (96-108); Estimated Glomerular Filt Rate > 60; Sodium 142 mmol/L (135-145)
== END 2024-01-12 14:02 | disposition home or self-care (01) ==
LOC: HO.LAB 14:01
PROVIDERS: PCP Family Medicine; Visit Provider Family Medicine
DX: I10 Essential (primary) hypertension (principal); E78.00 Pure hypercholesterolemia, unspecified; L98.8 Other specified disorders of the skin and subcutaneous tissue; Z79.899 Other long term (current) drug therapy
CPT/HCPCS: 36415; 80051; 82565; 84450; 84460; 84520; 85025

== ENCOUNTER 2024-04-21 10:37 | Outpatient (REF) | payer MEDICARE, OTHER, SELFPAY ==
[2024-04-21 11:00] LABS: MANUAL DIFF FLAG NO
[2024-04-21 11:48] LABS: Basophils Absolute Auto 0.1 X10*3/uL (0.0-0.2); Basophils Percent Auto 1.1 % (0-2); Eosinophils Absolute Auto 0.1 X10*3/uL (0.0-0.4); Eosinophils Percent Auto 1.6 % (0-4); Hematocrit 36.6 % (37.0-47.0); Imm Gran Abs Auto 0.02 X10*3/uL (0.00-0.03); Imm Gran Pct Auto 0.3 % (0.0-0.4); Lymphocytes Percent Auto 13.9 % (20-40); Mean Corpuscular HGB Conc 32.8 g/dl (31.0-35.0); Mean Corpuscular Hemoglobin 31.7 pg (27.0-33.0); Mean Corpuscular Volume 96.6 fL (80.0-98.0); Mean Platelet Volume 9.3 fL (9.4-12.3); Monocytes Absolute Auto 1.2 X10*3/uL (0.1-1.2); Monocytes Percent Auto 16.8 % (2-11); Neutrophils Absolute Auto 4.7 x10*3/uL (2.0-8.3); Neutrophils Percent Auto 66.3 % (45-73); Platelet Count 232 X10*3/uL (160-400); Red Blood Count 3.79 X10*6/uL (4.20-5.50); Red Cell Distribution Width 12.3 % (11.0-16.0)
[2024-04-21 12:16] LABS: Alanine Aminotransferase 21 U/L (0-31); Aspartate Amino Transferase 18 U/L (5-31); Blood Urea Nitrogen 8 mg/dL (9-16); Estimated Glomerular Filt Rate > 60
== END 2024-04-21 10:38 | disposition home or self-care (01) ==
LOC: HO.LAB 10:37
PROVIDERS: PCP Family Medicine; Visit Provider Family Medicine
DX: I10 Essential (primary) hypertension (principal); E78.00 Pure hypercholesterolemia, unspecified; D64.9 Anemia, unspecified
CPT/HCPCS: 36415; 82565; 84450; 84460; 84520; 85025

== ENCOUNTER → 2024-09-20 07:40 | Outpatient (REF) | payer MEDICARE, OTHER, SELFPAY ==
--- NOTE | 2024-09-20 07:48 | CA_ITS ---
Transthoracic Echocardiogram Patient (Last, First, Middle): Marielena Schroeder J Gender: Female Date of : 1945 Age: 79 Procedure Date: 09/20/2024 Procedure Type: Transthoracic Echocardiogram Location: OP Height: 167. cm Weight: 72.58 kg BSA: 1.81 m2 Heart Rate: 69 bpm BP: 132 / 70 mmHg Bass Viol Repairer: SILVESTRE Referring MD: Uziel Lugo MD Symptoms: I25.10 - Atherosclerotic heart disease of [place] coronary artery without... Study Quality: Fair ECG Rhythm: Sinus with extra beats Conclusions: - The left ventricular systolic function is normal. The calculated ejection fraction is 58% by biplane method. - The basal inferoseptal segment is hypokinetic. - No obvious valvular pathology seen on this study. - There is a small loculated pericardial effusion overlying the left ventricle and left atrium. Findings Left Ventricle Normal left ventricular cavity size. There is normal left ventricular wall thickness. The left ventricular systolic function is normal. The calculated ejection fraction is 58% by biplane method. Evidence suggests grade I (mild) diastolic dysfunction. Wall Motion Rest Echo Findings The basal inferoseptal segment is hypokinetic. Right Ventricle Normal right ventricular cavity size and systolic function. Atria The left atrium is mildly dilated. The right atrium is normal in size. Aortic Valve There is a normal trileaflet aortic valve. There is no aortic valve stenosis. There is no aortic valve regurgitation. Mitral Valve There is mild anterior mitral leaflet thickening. There is mild mitral valve regurgitation. There is no mitral valve stenosis. Pulmonic Valve The pulmonic valve is likely normal. Tricuspid Valve There is mild tricuspid valve regurgitation. There is no evidence of pulmonary hypertension. Great Vessels The asc aorta is normal in size. Venous The inferior vena cava is dilated and collapses less than 50% with inspiration. Pericardium/Pleural There is a small loculated pericardial effusion overlying the left ventricle and left atrium. Prior Study Comparison No significant change compared to prior study dated: 01/29/2022. Recommendations, Care & Conclusions No obvious valvular pathology seen on this study. Measurements 2D Linear Measurements IVSd: 0.97 0.6-0.9/0.6-1.0 cm LVIDd: 5.12 3.9-5.3/4.2-5.9 cm LVIDd Index: 2.83 2.4-3.2/2.2-3.1 cm/m2 LVIDs: 3.58 2.0-3.6 cm LVPWd: 0.92 0.7-1.1 cm LA Diam: 3.80 2.7-3.8/3.0-4.0 cm LAIDs Index: 2.10 1.5-2.3 cm/m2 LV Mass: 218.20 67-162/88-224 g LV Mass Index: 120.56 43-95/49-115 g/m2 LVOT Diam: 1.90 3.0+(-)1.3 cm 2D Systolic Function EF 4C: 59.80 >55% EF 2C: 56.50 >55% EF BiP: 57.90 >55% Mitral Valve MV VTI: 0.43 MV Pk Lior: 1.39 MV Mn Lior: 0.90 MV Pk Grad: 8.00 MV Mn Grad: 4.00 MV Pk E: 1.24 MV PK A: 1.40 MV Decel Time: 239.00 E/A: 0.90 E'Lateral: 7.62 E'Medial: 6.74 E/E' Med: 18.40 E/E' Lat: 16.30 PHT: 70.00 MVA PHT: 3.14 MVA Continuity: 1.40 Decel [place]: 5.21 Aortic Valve AoV Pk Lior: 1.42 AoV Mn Lior: 1.07 AoV VTI: 0.36 AoV Pk Grad: 8.00 Aov Mn Grad: 5.00 WILLIAMS Cont.VTI: 1.69 LVOT LVOT Pk Lior: 0.89 LVOT Mn Lior: 0.64 LVOT VTI: 0.21 LVOT Pk Grad: 3.00 LVOT Mn Grad: 2.00 LVOT Diam: 1.90 LVOT Area: 2.84 Diastolic Function MV Pk E: 1.24 MV Pk A: 1.40 E/A: 0.90 E'Medial: 6.74 E/E' Med: 18.40 E' Laterial: 7.62 E/E' Lat: 16.30 Right Ventricle TAPSE (mm): 30.50 TVS' Lior: 10.20 Tricuspid Valve TR Pk Lior: 2.61 TR Pk Grad: 27.00 RA Press: 15.00 RVSP: 42.00 Great Vessels Aorta Sinus of Valsalva: 2.90 2.0-3.5 cm Ao Asc: 2.90 2.1-3.4 cm Pulmonary Valve PV Pk Lior: 0.87 Peak PV Grad: 3.00 Updated in Other Vendor System with Status of Final Uziel Lugo MD electronically signed on 09/21/2024 3:40:15 PM with status of Final
[2024-09-20 08:53] LABS: MANUAL DIFF FLAG NO
[2024-09-20 09:16] LABS: Basophils Absolute Auto 0.1 X10*3/uL (0.0-0.2); Eosinophils Absolute Auto 0.2 X10*3/uL (0.0-0.4); Eosinophils Percent Auto 2.5 % (0-4); Hematocrit 37.8 % (37.0-47.0); Hemoglobin 12.3 g/dl (12.0-16.0); Imm Gran Abs Auto 0.01 X10*3/uL (0.00-0.03); Imm Gran Pct Auto 0.2 % (0.0-0.4); Immature Retic Fraction 10.6 % (3.0-15.9); Lymphocytes Percent Auto 17.7 % (20-40); Mean Corpuscular HGB Conc 32.5 g/dl (31.0-35.0); Mean Corpuscular Hemoglobin 31.2 pg (27.0-33.0); Mean Corpuscular Volume 95.9 fL (80.0-98.0); Mean Platelet Volume 9.5 fL (9.4-12.3); Monocytes Absolute Auto 0.8 X10*3/uL (0.1-1.2); Monocytes Percent Auto 13.9 % (2-11); Neutrophils Absolute Auto 3.8 x10*3/uL (2.0-8.3); Neutrophils Percent Auto 64.7 % (45-73); Platelet Count 213 X10*3/uL (160-400); Red Blood Count 3.94 X10*6/uL (4.20-5.50); Red Cell Distribution Width 13.4 % (11.0-16.0); Reticulocyte Percent 1.5 % (0.5-1.8); White Blood Count 5.9 X10*3/uL (4.8-10.8)
[2024-09-20 09:49] LABS: Alanine Aminotransferase 22 U/L (0-31); Aspartate Amino Transferase 21 U/L (5-31); Iron 78 mcg/dL (30-160); Percent Iron Saturation 26 % (15-50); Total Iron Binding Capacity 297 mcg/dL (228-428); Unsaturated Iron Binding 219 ug/dL
[2024-09-20 10:13] LABS: Ferritin 157 ng/mL (10-250)
[2024-09-20 10:24] LABS: Folate 7.3 ng/mL (> or = 4.0); Vitamin B12 268 pg/mL (200-900)
== END ==
LOC: HO.CARD 07:40
PROVIDERS: Absent Provider Family Medicine; PCP Family Medicine; Visit Provider Internal Medicine
DX: I25.10 Atherosclerotic heart disease of native coronary artery without angina pectoris (principal); F10.10 Alcohol abuse, uncomplicated; R00.0 Tachycardia, unspecified; D64.9 Anemia, unspecified; E78.00 Pure hypercholesterolemia, unspecified; Z79.899 Other long term (current) drug therapy
CPT/HCPCS: 36415; 82550; 82607; 82728; 82746; 83540; 84450; 84460; 85025; 85045; 93306

== ENCOUNTER → 2024-09-20 07:48 | Outpatient (BNV) | payer MEDICARE, OTHER, SELFPAY | PROVIDERS: Absent Provider Family Medicine; PCP Family Medicine; Visit Provider Internal Medicine | DX: I34.0 Nonrheumatic mitral (valve) insufficiency (principal); I36.1 Nonrheumatic tricuspid (valve) insufficiency; I31.39 Other pericardial effusion (noninflammatory); I51.89 Other ill-defined heart diseases | CPT/HCPCS: 93306 ==

== ENCOUNTER 2024-09-29 08:49 | Outpatient (AMB) | payer MEDICARE, OTHER, SELFPAY ==
[2024-09-29 08:59] VITALS: BP 130/70; PULSE 75; BMI 25.0
--- NOTE | 2024-09-29 08:59 | MHC.OFFVIS ---
Vital Signs 09/29/24 08:59 Height 5 ft 6 in Weight 154 lb 12.232 oz BMI 25.0 BP 130/70 Blood Pressure Location Lt brachial Position Sitting Pulse 75 Pulse Source Monitor Intake Visit Reasons: 1 yr f/up Publishing Agent Required: No Accompanied by: Self / Same As Patient Allergies No Known Allergies Allergy (Mild, Verified 09/29/23 08:53) N/A Medication List - Last Reconciled 09/29/24 by Uziel Lugo MD aspirin (Enteric Coated Aspirin) 81 mg PO DAILY calcium carbonate-vitamin D3 600 mg-10 mcg (400 unit) 1 tab PO DAILY carvedilol 12.5 mg PO BID coenzyme Q10 (Co Q-10) 100 mg PO DAILY ibuprofen (Advil) 200 mg PO Q6H PRN rosuvastatin 5 mg PO DAILY HPI Comments Details: Marielena returns for follow-up regarding sinus tachycardia as well as suspected coronary disease. She was originally seen in consultation regarding tachycardia. Thought to be possibly from alcohol. She is on beta-blockers in that regard. Initially on metoprolol but then switched over to carvedilol. That she underwent cardiac workup including echocardiogram and stress test and being treated for stable CAD as well. Overall, she states she feels fine. No cardiac symptoms. With regard to alcohol, still drinks about a glass regularly, but apparently less than before. [facility] Medical History (Updated 09/29/24 @ 09:04 by Emma Murphy CMA) Coronary heart disease Alcohol abuse Hx of breast cancer Anemia Hypertension Sinus tachycardia Atherosclerotic cardiovascular disease Surgical History Hx of colonoscopy History of removal of both ovaries History of appendectomy History of bilateral mastectomy History of section Family History Father No problems noted. Mother Stroke Social History Are you a primary progressive care unit registered nurse to a significant other at home: No Do you presently have visiting nurse or other home services: No Patient Tobacco Use Status: Never used Tobacco Second Hand Smoke Exposure: No Review of Systems Const Denies chills, Denies fatigue, Denies fever(s), Denies frequent falls, Denies weakness, Denies weight gain and Denies weight loss ENT Denies dizziness Card Denies chest pain, Denies leg edema, Denies lightheadedness, Denies palpitations, Denies dyspnea and Denies dyspnea on exertion Resp Denies cough, Denies dyspnea and Denies dyspnea on exertion GI Denies hematochezia Musc Denies abnormal gait, Denies muscle weakness, Denies numbness, Denies radiating pain into limb and Denies tingling Neuro Denies abnormal gait, Denies dizziness, Denies frequent falls, Denies numbness, Denies tingling and Denies weakness Endo Denies fatigue and Denies palpitations Physical Exam Vital Signs: Last Vital Signs Pulse 75 09/29/24 08:59 BP 130/70 09/29/24 08:59 BMI result Body Mass Index 25.0 Const General: comfortable and no acute distress Orientation/consciousness: patient oriented x3 HEENT Other: Unremarkable Head: Yes normal to inspection Neck Neck: Yes normal visual inspection Chest Chest palpation & inspection: normal inspection of the chest Resp Auscultation: clear to auscultation bilaterally Cardio Palpation: normal PMI Heart sounds: S1 normal heart sound present, S2 normal heart sound present, no gallops, no murmurs and no rubs GI Palpation (GI): Soft to palpation Back/Spine/Pelvis Other: unremarkable Skin General skin exam: no rashes or lesions noted Neuro General: patient oriented x3 Extrem General: Yes normal to inspection Psych Mental Status: mental status grossly normal Office Procedures EKG Details: EKG with underlying sinus rhythm at 75/Min; GA prolongation to 230 milliseconds; no significant ST-T changes. [id number], Complete Assessment & Plan Assessment & Plan (1) Atherosclerotic cardiovascular disease: Code(s): I25.10 - Atherosclerotic heart disease of [place] coronary artery without angina pectoris Category: Medical (2) Sinus tachycardia: Code(s): R00.0 - Tachycardia, unspecified Category: Medical (3) Alcohol abuse: Code(s): F10.10 - Alcohol abuse, uncomplicated Category: Social Hx Plan Cardiac studies reviewed. In the recent echocardiogram, LVEF 58%. Basal inferoseptal hypokinesis. Small effusion over the left ventricular/left atrium. Overall, unchanged from before. In the stress test, fixed basal inferoseptal perfusion defect, that could indicate old nontransmural infarct. Overall, no cardiac symptoms and hence we can continue treatment for stable coronary disease. Continue aspirin/statins. Not on high-dose statins due to concurrent alcohol excess. Last available LDL 68 mg/dL. No changes made. Follow-up in 1 year. If any interim concerns, to contact us. Coding Level of Care Code Est Pt Level 3 (01844) Diagnoses Atherosclerotic cardiovascular disease I25.10 Sinus tachycardia R00.0 Alcohol abuse F10.10 CPT Codes EKG - CPT: 79637-[id number], Complete ([id number])
== END 2024-09-29 09:15 | disposition home or self-care (01) ==
PROVIDERS: PCP Family Medicine; Visit Provider Internal Medicine
DX: I25.10 Atherosclerotic heart disease of native coronary artery without angina pectoris (principal); R00.0 Tachycardia, unspecified; F10.10 Alcohol abuse, uncomplicated
CPT/HCPCS: 93010; 99213

== ENCOUNTER → 2024-09-29 08:49 | Outpatient (BNVA) | payer MEDICARE, OTHER, SELFPAY | PROVIDERS: PCP Family Medicine; Visit Provider Internal Medicine | DX: I44.0 Atrioventricular block, first degree (principal); R00.0 Tachycardia, unspecified; I25.10 Atherosclerotic heart disease of native coronary artery without angina pectoris; I10 Essential (primary) hypertension; F10.10 Alcohol abuse, uncomplicated | CPT/HCPCS: 93005; 99212 ==

== ENCOUNTER 2025-04-25 09:49 | Outpatient (REF) | payer MEDICARE, OTHER, SELFPAY ==
--- OUTSIDE RECORDS SUMMARY | 2025-04-25 10:47 | XMS_ITS | Patient Health Record ---
Author Organization [facility] Address [address] [place] [id number] Care Team Providers Care Bioinformatics Research Technician Name Role Phone Teodoro Limon MD Primary Care Provider Unavailab Christiano Bacon Unavailable [phone] Reason For Referral No Information Medications Medication SIG (Take, Route, Frequency, Duration) Notes Start Date End Date Status Carvedilol Active Co Q 10 Active Advil PRN Active Aspir-81 81 MG 1 tablet Orally Once a day Active Calcium 500 + D 500-125 MG-UNIT 1 tablet with food Orally Once a day Active Atorvastatin Calcium Active Immunizations Vaccine Route Administration Date Status Comme nts Flu vaccine no Preserv 3 and > Unknown 07/26/2014 Admin istered Influenza Unknown 07/25/2020 Administered Problems Problem Type SNOMED Code ICD Code Onset Dates Problem Status W/U Status Risk Notes Problem Encounter for screening for malignant neoplasm of colon (Z12.11) Active confirmed Problem History of adenomatous polyp of colon (274557412) History of adenomatous polyp of colon (Z86.010) Active confirmed Problem Preprocedural examination (213076010478729) Preprocedural examination (Z01.818) Active confirmed Problem Long-term current use of aspirin ([id number]) Aspirin long-term use (Z79.82) Active confirmed Plan Of Treatment Future Test Test Name Order Date COLONOSCOPY 06/20/2015 COLONOSCOPY 10/20/2020 Insurance Providers Payer Name Payer Address Payer Phone Subscriber Number Group Number Insured Name Patient Relationship to Insured Coverage Start Date Coverage End Date MEDICARE OF [place] [address] [place] [address] [id number] JOSE G FRAGOSO Self - patient is the insured [facility] [address] [place] [address] [id number] JOSE G FRAGOSO Self - patient is the insured Medical (General) History Medical History History ICD Code 06/28/2010 Colonoscopy--alma brandon of 1 tubular adenoma; neg. colonoscopy in the Anemia Hypertension Occasional elevated heart rate--she repo rts a negative Holter monitor Denies DM,CVA,Lung disease,renal disease Breast cancer as below Atherosclerotic cardiovascular disease ( ASCVD)---? OK in the past Colonoscopy in 08/2015--1 small adenoma removed Surgical History Surgery Date(Month/Year) Bilateral mastectomy-1994 and 2005 for b reast cancer Appendectomy C-sections Bilateral oopherectomy- prop hylactically although the BRCA gene was negative 03/2013
[2025-04-25 11:03] LABS: Alanine Aminotransferase 25 U/L (0-31); Anion Gap 12 (12-20); Aspartate Amino Transferase 25 U/L (5-31); Blood Urea Nitrogen 12 mg/dL (9-16); Carbon Dioxide 30 mmol/L (22-29); Chloride 100 mmol/L (96-108); Estimated Glomerular Filt Rate > 60; Potassium 4.9 mmol/L (3.3-5.1); Sodium 137 mmol/L (135-145)
== END 2025-04-25 09:50 | disposition home or self-care (01) ==
LOC: HO.LAB 09:49
PROVIDERS: PCP Family Medicine; Visit Provider Family Medicine
DX: I10 Essential (primary) hypertension (principal); Z79.899 Other long term (current) drug therapy; E78.00 Pure hypercholesterolemia, unspecified
CPT/HCPCS: 36415; 80051; 82550; 82565; 84450; 84460; 84520

== ENCOUNTER 2025-07-07 09:15 | Outpatient (AMB) | payer MEDICARE, OTHER, SELFPAY ==
[2025-07-07 08:24] VITALS: BP 134/76; PULSE 70; TEMP 36.2; O2SAT 98; BMI 26.6
--- NOTE | 2025-07-07 08:24 | MHC.PC.OV ---
Vital Signs 07/07/25 08:24 Height 5 ft 6 in Weight 165 lb BMI 26.6 BP 134/76 Blood Pressure Location Lt brachial Position Sitting Pulse 70 Pulse Source Pulse Oximeter Temp 97.1 F Temp Source Temporal Artery Scan Pulse Oximetry (%) 98 Oxygen Delivery Method Room Air Intake Visit Reasons: 3 MONTH FOLLOW [facility] Food Safety Auditor Required: No Accompanied by: Self / Same As Patient Allergies No Known Allergies Allergy (Mild, Verified 07/07/25 08:24) N/A Tobacco use date assessed: 07/07/25 Fall risk assessment: No Falls in past year Last assessed Fall Risk: 07/07/25 Dental Screening Dental Screen Date: 07/07/25 Did you have a dental visit in the last 12 months?: Yes Did you have a dental problem in the last 6 months where you did not have access to dental care?: No HPI HPI Comments History of Present Illness Details Marielena is a 80 year old female with a past medical history of multinodular goiter, htn, history of breast cancer, colon polyp, h/o ETOH use, PVD presenting to [facility] care CV: on crestor, coreg (increased recently for high BP). Sees [facility] cardiology she underwent cardiac workup including echocardiogram and stress test and being treated for stable CAD. Sees vascular Dr Christensen. Carotid artery disease. Mammo: stopped. bilateral mastectomy. She was told no longer needed follow up Colonoscopy Dr Nina 11/2020-5 years ROS CONSTITUTIONAL: Denies weight loss, fever and chills. HEENT: Denies changes in vision and hearing. RESPIRATORY: Denies SOB and cough. CV: Denies palpitations and CP GI: Denies abdominal pain, nausea, vomiting and diarrhea. : Denies dysuria and urinary frequency. MSK: Denies new myalgia and joint pain. SKIN: Denies rash and pruritus. NEUROLOGICAL: Denies headache PSYCHIATRIC: Denies recent changes in mood. PHYSICAL EXAM: GENERAL: Alert and oriented x 3. NAD EYES: EOMI. Anicteric. HENT: Moist mucous membranes. No scleral icterus. No cervical lymphadenopathy. LUNGS: Clear to auscultation bilaterally. CARDIOVASCULAR: Regular rate and rhythm. No murmur. No JVD. ABDOMEN: Soft, non-tender +bs EXTREMITIES: No edema. Non-tender. SKIN: No rashes or lesions. Warm. NEUROLOGIC: No focal neurological deficits. CN II-XII grossly intact PSYCHIATRIC: Cooperative. Appropriate mood and affect [facility] Medical History (Updated 07/09/25 @ 12:19 by Tangela Sloan MD) Coronary heart disease Alcohol abuse Hx of breast cancer Anemia Hypertension Sinus tachycardia Atherosclerotic cardiovascular disease Surgical History Hx of colonoscopy (~12/04/20) History of removal of both ovaries History of appendectomy History of bilateral mastectomy History of section Family History Father No problems noted. Mother Stroke Social History Housing: House Are you a primary child care group leader to a significant other at home: No Do you presently have visiting nurse or other home services: No Patient Tobacco Use Status: Never used Tobacco e-Cigarette/Vaping Use: Never Used Second Hand Smoke Exposure: No service: No Current occupational status: retired Cognitive needs: No Hearing needs: No Vision needs: Yes (rx glasses) Questionnaire PHQ-9 Over the last 2 weeks, how often have you been bothered by any of the following problems? 1. Little interest or pleasure in doing things: not at all 2. Feeling down, depressed, or hopeless: not at all 3. Trouble falling or staying asleep, or sleeping too much: not at all 4. Feeling tired or having little energy: not at all 5. Poor appetite or overeating: not at all 6. Feeling bad about yourself - or that you are a failure or have let yourself or your family down: not at all 7. Trouble concentrating on things, such as reading the newspaper or watching television: not at all 8. Moving or speaking so slowly that other people could have noticed. Or the opposite - being so fidgety or restless that you have been moving around a lot more than usual: not at all 9. Thoughts that you would be better off or of hurting yourself in some way: not at all Total score: 0 Depression Screening Interpretation: Negative Depression Screening Done: Yes 29015 - PHQ-9 Billing: Yes Source: Developed by Drs. Christiano Conway, DorindaTheo Raphael and colleagues, with an educational juan from [employer]. Thrive Questionnaire Date Thrive assessed: 07/07/25 I am a: Patient Within the past 12 months, did the food you bought not last and you didn't have the money to get more?: Never true Within the past 12 months, did you worry whether your food would run out before you got money to buy more?: Never true Do you have trouble paying for medicines?: No Do you have trouble getting transportation to medical appointments?: No Do you have trouble paying your heating and electricity bill?: No Do you have trouble taking care of your child, family member or friend?: No Do you have trouble with day-to-day activities such as bathing, preparing meals, shopping, managing finances, etc.?: No Are you currently unemployed and looking for a job?: No Are you interested in more education?: No THRIVE Score: 0 AUDIT C Alcohol Use Questionnaire (AUDIT-C) 1. How often do you have a drink containing alcohol?: Monthly or less 2. How many drinks containing alcohol do you have on a typical day when you are drinking?: 1 or 2 3. How often do you have six or more drinks on one occasion?: Less than monthly Total Score: 2 VLADIMIR-7 AMB Questionnaire VLADIMIR-7 Date VLADIMIR - 7 assessed: 07/07/25 Feeling nervous, anxious, or on edge: 0 = Not at all Not being able to stop or control worryin = Not at all Worrying too much about different things: 0 = Not at all Trouble relaxin = Not at all Being so restless that it is hard to sit still: 0 = Not at all Becoming easily annoyed or irritable: 0 = Not at all Feeling afraid as if something awful might happen: 0 = Not at all Total VLADIMIR-7 score (0-4 normal; 5-9 mild; 10-14 moderate; 15-21 severe): 0 Source: Developed by Drs. Christiano Conway, Theo Oseguera and colleagues, with an educational juan from [employer]. Physical exam (Primary Care) Vital Signs: Last Vital Signs Temp 97.1 F 07/07/25 08:24 Pulse 70 07/07/25 08:24 BP 134/76 07/07/25 08:24 Pulse Ox 98 07/07/25 08:24 Oxygen Delivery Method Room Air 07/07/25 08:24 BMI result Body Mass Index 26.6 Tobacco/Smoking Status: Tobacco use Status Tobacco use date assessed 07/07/25 07/07/25 08:26 Patient Tobacco Use Status Never used Tobacco 07/07/25 08:26 e-Cigarette/Vaping Use Never Used 07/07/25 08:26 PHQ-9: PHQ-9 Score PHQ-9: Total score 0 07/07/25 09:37 Depression Screening Interpretation: Negative Thrive Assessment: Date of Thrive Assessment Date Thrive assessed 07/07/25 07/07/25 08:26 Coding Level of Care Code New Pt Level 4 (75745) Diagnoses Primary hypertension I10 Hypertension type: primary hypertension Coronary artery disease, unspecified vessel or lesion type, unspecified whether angina present, unspecified whether [place] or transplanted heart I25.10 Coronary Disease-Associated Artery/Lesion type: unspecified vessel or lesion type [place] vs. transplanted heart: unspecified whether [place] or transplanted heart Associated angina: unspecified whether angina present Atherosclerotic cardiovascular disease I25.10 History of multinodular goiter Z86.39 Additional Codes PHQ-9 - 80447 - PHQ-9 Billing: Yes ([id number]) Assessment & Plan Assessment & Plan (1) Hypertension: Code(s): I10 - Essential (primary) hypertension Category: Medical Qualifiers: Hypertension type: primary hypertension Qualified Code(s): I10 - Essential (primary) hypertension (2) Coronary heart disease: Code(s): I25.10 - Atherosclerotic heart disease of [place] coronary artery without angina pectoris Category: Medical Qualifiers: Coronary Disease-Associated Artery/Lesion type: unspecified vessel or lesion type [place] vs. transplanted heart: unspecified whether [place] or transplanted heart Associated angina: unspecified whether angina present Qualified Code(s): I25.10 - Atherosclerotic heart disease of [place] coronary artery without angina pectoris (3) Atherosclerotic cardiovascular disease: Code(s): I25.10 - Atherosclerotic heart disease of [place] coronary artery without angina pectoris Category: Medical (4) History of multinodular goiter: Code(s): Z86.39 - Personal history of other endocrine, nutritional and metabolic disease Category: Medical Plan 80 year old to establish care past medical surgical social reviewed HLD-stable on SaludFÁCIL ordered Orders: Orders Lipid Panel 07/07/25 I10 - Essential (primary) hypertension, I25.10 - Atherosclerotic heart disease of [place] coronary artery without angina pectoris, Z86.39 - Personal history of other endocrine, nutritional and metabolic disease Complete Blood Count Auto Diff 07/07/25 I10 - Essential (primary) hypertension, I25.10 - Atherosclerotic heart disease of [place] coronary artery without angina pectoris, Z86.39 - Personal history of other endocrine, nutritional and metabolic disease Comprehensive Met. Panel 07/07/25 I10 - Essential (primary) hypertension, I25.10 - Atherosclerotic heart disease of [place] coronary artery without angina pectoris, Z86.39 - Personal history of other endocrine, nutritional and metabolic disease TSH reflex Free T4 07/07/25 I10 - Essential (primary) hypertension, I25.10 - Atherosclerotic heart disease of [place] coronary artery without angina pectoris, Z86.39 - Personal history of other endocrine, nutritional and metabolic disease
--- OUTSIDE RECORDS SUMMARY | 2025-07-07 10:15 | XMS_ITS | Clinical Summary ---
Author Organization [facility] Address [address] [place] [phone] Phone Care Team Providers Care Contact Center Professional Name Role Phone Teodoro Limon MD Primary Care Provider Allergies No known active allergies Medications Medication-Free TextIndications :Calcium with D3 Indications: Calcium with D3 Active aspirin 81 MG EC tablet Take 81 mg by mouth daily. Active carvedilol (COREG) 12.5 MG tablet Take 12.5 mg by mouth. 3 07/20/2019 Active rosuvastatin (CRESTOR) 5 MG tablet 04/26/2022 Active naproxen (NAPROSYN) 500 MG tablet Take 1 tablet (500 mg total) by mouth 2 (two) times a day with meals. 20 tablet 05/01/2022 Active Active Problems Problem Noted Date Diagnosed Date Axillary pain, left 07/15/2019 Assessment & Plan (07/15/2019 2:05 PM EDT): Reassured patient of normal axillary exam bilaterally. In light of normal exam and current lack of symptoms, I have suggested expectant management. If symptoms were to recur I have advised patient to call. I advised her I am not certain with the optimal imaging study would be to evaluate the axilla but would discuss at that time with the radiologist. Resolved Problems Problem Noted Date Diagnosed Date Resolved Date Melanoma in situ of right shoulder 08/25/2018 08/25/2018 Immunizations No known immunizations Family History Medical History Relation Comments Pancreatic cancer Brother Heart disease Father Smoker Breast cancer Maternal Aunt 40 at diagnosis Stroke Mother Smoker Relation Status Comments Brother Father Maternal Aunt Mother Social History Tobacco Use Types Packs/Day Years Used Date Smoking Tobacco: Never Smokeless Tobacco: Never Alcohol Use Standard Drinks/Week Comments Yes 0 (1 standard drink = 0.6 oz pur e alcohol) 2 drinks daily Education Answer Date Recorded Are you interested in more education? Not on khoa e 03/07/2023 Are you concerned about learning? Not on file 03/07/2023 No 03/07/2023 No 03/07/2023 Digital Access Answer Date Recorded No 04/05/2023 No 04/05/2023 Reliable internet access at home? Not on file 04/05/2023 Device with a working camera? 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/ retired Not on file Not on fi le Not on file retired Not on file Not on file Not on file Last Filed Vital Signs Vital Sign Reading Time Taken Comments Blood Pressure 149/77 05/01/2022 5:52 PM EDT Pulse 99 05/01/2022 5:52 PM EDT Temperature 37 C (98.6 F) 05/01/2022 5:52 PM EDT Respiratory Rate 16 05/01/2022 5:52 PM EDT Oxygen Saturation 98% 05/01/2022 5:52 PM EDT Inhaled Oxygen Concentration - - Weight 74.8 kg (165 lb) 05/01/2022 5:52 PM EDT Height 167.6 cm (5' 6 ) 05/01/2022 5:52 PM EDT Body Mass Index 26.63 05/01/2022 5:52 PM EDT Plan of Treatment Health Maintenance Due Date Last Done Comments Adult Td,Tdap Booster 1945 LIPID PANEL 1946 DEPRESSION SCREENING 1958 HEPATITIS C SCREENING 1964 ZOSTER VACCINES (1 of 2) 1996 OSTEOPOROSIS SCREENING INITIAL (ONE-TIME) 2011 PNEUMOCOCCAL VACCINES (50+ years) (2 of 2 - PCV) 12/02/2017 12/02/2016 RSV VACCINE (1 - 1-dose 75+ series) 2021 COVID-19 VACCINE ( season) 2024 02/14/2022, 09/06/2021, 02/01/2021, Additional history exists INFLUENZA VACCINE (#1) 2025 , 08/21/2021, 07/25/2020 SMOKING STATUS SCREENING (Once After 26 Yrs) Completed 05/01/2022 HEPATITIS A VACCINES Aged Out No long er eligible based on patient's age to complete this topic HIB VACCINES Aged Out No longer eligi ble based on patient's age to complete this topic MENINGOCOCCAL VACCINES (ACWY) Aged Out No longer eligible based on patient's age to complete this topic MENINGOCOCCAL VACCINES (B) Aged Out N o longer eligible based on patient's age to complete this topic Medical Devices Not on file Insurance MEDICARE PART A & B [facility] [employer] MEDICARE SUPPLEMENT MEDICARE PART A & B [employer] MEDICARE SUPPLEMENT MEDICARE PART A & B [employer] MEDICARE SUPPLEMENT MEDICARE PART A & B [employer] MEDICARE SUPPLEMENT MEDICARE PART A & B [employer] MEDICARE SUPPLEMENT MEDICARE PART A & B [facility] MEDICARE SUPPLEMENT MEDICARE PART A & B [facility] [employer] MEDICARE SUPPLEMENT MEDICARE PART A & B [facility] [employer] MEDICARE SUPPLEMENT MEDICARE PART A & B [facility] [employer] MEDICARE SUPPLEMENT Care Teams Contact Center Professional Relationship Specialty Start Date End Date Teodoro Limon MD [address] [place] [address] [place] [address] PCP - General Internal Medicine 06/22/18 Additional Source Comments The information contained in this document represents components of the legal health record. It is not the complete legal health record.[facility]
--- OUTSIDE RECORDS SUMMARY | 2025-07-07 10:16 | XMS_ITS | Patient Health Record ---
Author Organization [facility] Address [address] [place] [address] Care Team Providers Care Transportation Planning Technician Name Role Phone Braxton (RETIRED) Teodoro HUFF Primary Care Provider Unavailable Christiano Nina Unavailable [phone] Reason For Referral No Information Medications Medication [...] Problem Status W/U Status Risk Notes Problem Screening for malignant neoplasm of colon (747425551) Encounter for screening for malignant neoplasm of colon (Z12.11) Active confirmed Problem History of adenomatous polyp of colon (404051261) History of adenomatous polyp of colon (Z86.010) Active confirmed Problem Preprocedural examination (291324073054881) Preprocedural examination (Z01.818) Active confirmed Problem Long-term current use of aspirin (886141337529135) Aspirin long-term use (Z79.82) Active confirmed Plan Of Treatment Future Test Test Name Order Date COLONOSCOPY 06/20/2015 COLONOSCOPY 10/20/2020 Insurance Providers Payer Name Payer Address Payer Phone Subscriber Number Group Number Insured Name Patient Relationship to Insured Coverage Start Date Coverage End Date MEDICARE OF [place] [address] [place] [address] [id number] JOSE G FRAGOSO Self - patient is the insured [facility] [employer] [address] [place] [address] [id number] JOSE G FRAGOSO Self - patient is the insured Medical (General) History Medical History History ICD Code 06/28/2010 Colonoscopy--alma brandon of 1 tubular adenoma; neg. colonoscopy in the Anemia Hypertension Occasional elevated heart rate--she repo rts a negative Holter monitor Denies DM,CVA,Lung disease,renal disease Breast cancer as below Atherosclerotic cardiovascular disease ( ASCVD)---? [place] in the past Colonoscopy in 08/2015--1 small adenoma removed Surgical History Surgery Date(Month/Year) Bilateral mastectomy-1994 and 2005 for b reast cancer Appendectomy C-sections Bilateral oopherectomy- prop hylactically although the BRCA gene was negative 03/2013
== END 2025-07-07 09:49 | disposition home or self-care (01) ==
LOC: HO.HMCHD 09:15
PROVIDERS: PCP Family Medicine; Visit Provider Internal Medicine
DX: I10 Essential (primary) hypertension (principal); I25.10 Atherosclerotic heart disease of native coronary artery without angina pectoris; Z86.39 Personal history of other endocrine, nutritional and metabolic disease

== ENCOUNTER → 2025-07-07 09:15 | Outpatient (BNVA) | payer MEDICARE, OTHER, SELFPAY | PROVIDERS: PCP Family Medicine; Visit Provider Internal Medicine | DX: Z76.89 Persons encountering health services in other specified circumstances (principal); I10 Essential (primary) hypertension; I25.10 Atherosclerotic heart disease of native coronary artery without angina pectoris; Z86.39 Personal history of other endocrine, nutritional and metabolic disease; Z13.31 Encounter for screening for depression; Z13.39 Encounter for screening examination for other mental health and behavioral disorders | CPT/HCPCS: 96127; 99202 ==

== ENCOUNTER 2025-10-04 08:53 | Outpatient (AMB) | payer MEDICARE, OTHER, SELFPAY ==
--- NOTE | 2025-10-04 09:02 | A.OFFVIS_ITS ---
Vital Signs 10/04/25 09:07 Height 5 ft 6 in Weight 166 lb 10.711 oz BMI 26.9 BP 110/66 Blood Pressure Location Lt brachial Position Sitting Pulse 79 Pulse Source Monitor Intake Visit Reasons: 1 yr follow up Java Manager Required: No Accompanied by: Self / Same As Patient Allergies No Known Allergies Allergy (Mild, Verified 07/07/25 08:24) N/A Medication List - Last Reconciled 10/04/25 by Uziel Lugo MD aspirin (Enteric Coated Aspirin) 81 mg PO DAILY calcium carbonate-vitamin D3 600 mg-10 mcg (400 unit) 1 tab PO DAILY carvedilol 12.5 mg PO BID coenzyme Q10 (Co Q-10) 100 mg PO DAILY ibuprofen (Advil) 200 mg PO Q6H PRN rosuvastatin 5 mg PO DAILY HPI Comments Details: Marielena returns for follow-up regarding sinus tachycardia as well as suspected coronary disease. She was originally seen in consultation regarding tachycardia. Thought to be possibly from alcohol. She is on beta-blockers in that regard. Initially on metoprolol but then switched over to carvedilol. That she underwent cardiac workup including echocardiogram and stress test and being treated for stable CAD as well. Since last seen, she states she feels good. No cardiac symptoms whatsoever. With regard to the alcohol, she is still drinks wine almost daily. However, she states she is still trying to cut back. [facility] Medical History Coronary heart disease Alcohol abuse Hx of breast cancer Anemia Hypertension Sinus tachycardia Atherosclerotic cardiovascular disease Surgical History Hx of colonoscopy (~12/04/20) History of removal of both ovaries History of appendectomy History of bilateral mastectomy History of section Family History Father No problems noted. Mother Stroke Social History Housing: House Are you a primary healthcare receptionist to a significant other at home: No Do you presently have visiting nurse or other home services: No Patient Tobacco Use Status: Never used Tobacco e-Cigarette/Vaping Use: Never Used Second Hand Smoke Exposure: No service: No Current occupational status: retired Cognitive needs: No Hearing needs: No Vision needs: Yes (rx glasses) Review of Systems Const Denies chills, Denies fatigue, Denies fever(s), Denies frequent falls, Denies weakness, Denies weight gain and Denies weight loss ENT Denies dizziness Card Denies chest pain, Denies leg edema, Denies lightheadedness, Denies palpitations, Denies dyspnea and Denies dyspnea on exertion Resp Denies cough, Denies dyspnea and Denies dyspnea on exertion GI Denies hematochezia Musc Denies abnormal gait, Denies muscle weakness, Denies numbness, Denies radiating pain into limb and Denies tingling Neuro Denies abnormal gait, Denies dizziness, Denies frequent falls, Denies numbness, Denies tingling and Denies weakness Endo Denies fatigue and Denies palpitations Physical Exam Vital Signs: Last Vital Signs Pulse 79 10/04/25 09:07 BP 110/66 10/04/25 09:07 BMI result Body Mass Index 26.9 Const General: comfortable and no acute distress Orientation/consciousness: patient oriented x3 HEENT Other: Unremarkable Head: Yes normal to inspection Neck Neck: Yes normal visual inspection Chest Chest palpation & inspection: normal inspection of the chest Resp Auscultation: clear to auscultation bilaterally Cardio Palpation: normal PMI Heart sounds: S1 normal heart sound present, S2 normal heart sound present, no gallops, no murmurs and no rubs GI Palpation (GI): Soft to palpation Back/Spine/Pelvis Other: unremarkable Skin General skin exam: no rashes or lesions noted Neuro General: patient oriented x3 Extrem General: Yes normal to inspection Psych Mental Status: mental status grossly normal Office Procedures EKG Details: EKG with underlying sinus rhythm at 79/Min; CT prolongation to 236 milliseconds; possible left atrial enlargement; no ischemic changes; [place] [id number], Complete Assessment & Plan Assessment & Plan (1) Atherosclerotic cardiovascular disease: Code(s): I25.10 - Atherosclerotic heart disease of [place] coronary artery without angina pectoris Category: Medical (2) Sinus tachycardia: Code(s): R00.0 - Tachycardia, unspecified Category: Medical (3) Alcohol abuse: Code(s): F10.10 - Alcohol abuse, uncomplicated Category: Social Hx Plan Cardiac studies reviewed. In the last echocardiogram, LVEF 58%. Basal inferoseptal hypokinesis. Small effusion over the left ventricular/left atrium. Overall, unchanged from before. In the stress test, fixed basal inferoseptal perfusion defect, that could indicate old nontransmural infarct. Overall, no cardiac symptoms and hence we can continue treatment for stable coronary disease. Continue aspirin/statins. Not on high-dose statins due to concurrent alcohol excess. Last available LDL 68 mg/dL. She is repeat a lipid profile and there is an already order for the same. No changes made. Follow-up in 1 year. If any interim concerns, to contact us. Discussion Notes I discussed with the patient the need for blood work, as cholesterol has not been checked in four years and I am prescribing cholesterol medication. We agreed it would be beneficial to have a fresh panel of labs before the patient sees the new primary care provider in November. I advised the patient to work on reducing daily wine consumption and to start a regular exercise routine, such as walking. The patient affirmed feeling well and denied any chest pain or other cardiac symptoms. A follow-up visit is scheduled for one year. Patient was informed and verbally consented to the use of an ambient scribe for clinic note documentation during this visit. Patient Instructions: - Please get your blood work done to check your cholesterol levels since it has been four years. - Try to reduce the amount of wine you drink each day. - It would be a good idea to start exercising more regularly, such as by walking. - We will see you back in the office in one year for your next follow-up. Coding Level of Care Code Est Pt Level 4 (43349) Complex visit Add On G2211 Diagnoses Atherosclerotic cardiovascular disease I25.10 Sinus tachycardia R00.0 Alcohol abuse F10.10 CPT Codes EKG - CPT: 85192-[id number], Complete ([id number])
[2025-10-04 09:07] VITALS: BP 110/66; PULSE 79; BMI 26.9
--- OUTSIDE RECORDS SUMMARY | 2025-10-04 09:27 | XMS_ITS | Clinical Summary ---
Author Organization [facility] Address [address] [facility] [address] [place] [id number] Phone Care Team Providers Care Tumbler Drier Operator Name Role Phone Teodoro Limon MD Primary [...] VACCINE (1 - 1-dose 75+ series) 2021 INFLUENZA VACCINE (#1) 2025 , 08/21/2021, 07/25/2020 COVID-19 VACCINE (2024- season) 2025 02/14/2022, 09/06/2021, 02/01/2021, Additional history exists SMOKING STATUS SCREENING (Once After 26 Yrs) [...] file Insurance MEDICARE PART A & B [facility] MEDICARE SUPPLEMENT MEDICARE PART A & B [email or web address] MEDICARE SUPPLEMENT MEDICARE PART A & B [employer] MEDICARE SUPPLEMENT MEDICARE PART A & B [email or web address] MEDICARE SUPPLEMENT MEDICARE PART A & B [email or web address] MEDICARE SUPPLEMENT MEDICARE PART A & B [facility] MEDICARE SUPPLEMENT MEDICARE PART A & B [facility] MEDICARE SUPPLEMENT MEDICARE PART A & B [facility] MEDICARE SUPPLEMENT MEDICARE PART A & B [facility] [employer] MEDICARE SUPPLEMENT Care Teams Tumbler Drier Operator Relationship Specialty Start Date End Date Teodoro Limon MD [address] [place] [address] [place] [id number] PCP - General Internal Medicine 06/22/18 Additional Source Comments The information contained in this document represents components of the legal health record. It is not the complete legal health record.[facility]
== END 2025-10-04 09:20 | disposition home or self-care (01) ==
LOC: HO.HCS 08:53
PROVIDERS: PCP Family Medicine; Visit Provider Internal Medicine
DX: I25.10 Atherosclerotic heart disease of native coronary artery without angina pectoris (principal); R00.0 Tachycardia, unspecified; F10.10 Alcohol abuse, uncomplicated
CPT/HCPCS: 93010; 99214; G2211

== ENCOUNTER → 2025-10-04 08:53 | Outpatient (BNVA) | payer MEDICARE, OTHER, SELFPAY | PROVIDERS: PCP Family Medicine; Visit Provider Internal Medicine | DX: I25.10 Atherosclerotic heart disease of native coronary artery without angina pectoris (principal); I10 Essential (primary) hypertension; R00.0 Tachycardia, unspecified; I44.0 Atrioventricular block, first degree; I49.3 Ventricular premature depolarization; F10.10 Alcohol abuse, uncomplicated | CPT/HCPCS: 93005; 99212 ==